=== PATIENT | male | born 1950 | race Caucasian/White ===

== ENCOUNTER 2017-04-11 14:41 | Emergency (ER) | payer SELFPAY, MEDICAID, MEDICARE, OTHER | END 2017-04-11 16:00 | disposition left against medical advice (07) | LOC: FTE 14:41 | DX: Z53.21 Procedure and treatment not carried out due to patient leaving prior to being seen by health care provider (principal) ==

== ENCOUNTER 2017-04-13 12:23 | Emergency (ER) | payer MEDICARE, OTHER ==
[2017-04-13] MEDS: KETOROLAC 30 MG INJ IM (14:13)
[2017-04-13] MEDS: HYDROCODONE/APAP (5/325) TAB PO (14:13)
[2017-04-13 14:18] LABS: URINE BLOOD (Dip) POC Trace-intact (NEGATIVE); URINE KETONES (Dip) POC Negative (NEGATIVE); URINE LEUKOCYTE EST (Dip) POC Negative (NEGATIVE); URINE NITRITE (Dip) POC Negative (NEGATIVE); URINE TOTAL PROTEIN POC Negative (NEGATIVE)
[2017-04-13 14:18] LABS: URINE PH (Dip) POC 5.5 (5.0-8.5)
== END 2017-04-13 16:47 | disposition home or self-care (01) ==
LOC: FTE 12:23
DX: M54.5 Low back pain (principal); F17.210 Nicotine dependence, cigarettes, uncomplicated; Z79.4 Long term (current) use of insulin
CPT/HCPCS: 74176; 81003; 96372; 99285-25

== ENCOUNTER 2018-06-20 11:17 | Emergency (ER) | payer MEDICARE, OTHER ==
[2018-06-20 12:53] LABS: ADD MAN DIFF? NO
[2018-06-20 13:02] LABS: BASOPHILS % 0.7 % (0.0-2.0); EOSINOPHILS # 0.1 10^3/ul (0.0-0.5); EOSINOPHILS % 3.1 % (0.0-7.0); HEMOGLOBIN 14.4 g/dl (14.0-18.0); LYMPHOCYTES % 22.7 % (15.0-51.0); MEAN CORPUSCULAR HEMOGLOBIN 30.7 pg (29.0-33.0); MEAN CORPUSCULAR HGB CONC 33.5 g/dl (32.0-37.0); MEAN CORPUSCULAR VOLUME 91.7 fl (82.0-101.0); MEAN PLATELET VOLUME 10.6 fl (7.4-10.4); MONOCYTE # 0.6 10^3/ul (0.3-0.9); NEUTROPHIL # 2.8 10^3/ul (1.6-7.5); NEUTROPHILS % 61.3 % (39.0-77.0); PLATELET COUNT 136 10^3/UL (140-415); RED BLOOD COUNT 4.69 10^6/ul (4.70-6.10); RED CELL DISTRIBUTION WIDTH 14.5 % (11.5-14.5)
[2018-06-20 13:02] LABS: WHITE BLOOD COUNT 4.6 10^3/ul (4.8-10.8)
[2018-06-20 13:26] LABS: ANION GAP 11 (5-13); BLOOD UREA NITROGEN 16 mg/dl (7-20); CALCIUM 9.5 mg/dl (8.4-10.2); CARBON DIOXIDE 26 mmol/L (21-31); CHLORIDE 106 mmol/L (97-110); CREATININE 0.82 mg/dl (0.61-1.24); Estimated GFR > 60 mL/min (>60); GLUCOSE 188 mg/dl (70-220); POTASSIUM 3.5 mmol/L (3.5-5.1); SODIUM 143 mmol/L (135-144)
[2018-06-20 13:39] LABS: B-TYPE NATRIURETIC PEPTIDE 96 PG/ML (0-125); TROPONIN-I < 0.012 ng/ml (0.000-0.120)
[2018-06-20] MEDS ORDERED: ACETAMINOPHEN 325 MG TAB PO (14:30)
[2018-06-20] MEDS ORDERED: ONDANSETRON 4 MG INJ IV (14:30)
== END 2018-06-20 14:55 | disposition left against medical advice (07) ==
LOC: E/R 11:17
DX: I63.9 Cerebral infarction, unspecified (principal); R06.00 Dyspnea, unspecified; I11.0 Hypertensive heart disease with heart failure; I50.9 Heart failure, unspecified; E11.9 Type 2 diabetes mellitus without complications; F17.210 Nicotine dependence, cigarettes, uncomplicated; R29.810 Facial weakness; Z79.4 Long term (current) use of insulin
CPT/HCPCS: 36415; 70450; 71045; 80048; 83880; 84484; 85025; 93005; 99285-25